=== PATIENT | female | born 1950 | race Two or more races ===

== ENCOUNTER → 2019-05-30 | Day surgery (SDC) | payer OTHER ==
--- NOTE | 2019-05-31 13:16 | PATH ---
Cytology Non-Gynecological Report Patient Name: CELIA BURNETTE [facility]. Rec. #: [id number] /Age/Gender: 1950 (Age: 69) / F Account: [id number] Location: RADIOLOGY INTER Taken: 05/30/2019 Received: 05/30/2019 Reported: 05/31/2019 Physicians: Eleonora Farrar M.D. Specimen(s) Received THYROID, RIGHT LOBE, FINE NEEDLE ASPIRATION Clinical History Right lobe, 2.33 x 1.48 x 1.53 cm Final Diagnosis THYROID, RIGHT LOBE, FINE NEEDLE ASPIRATION: SATISFACTORY FOR EVALUATION. B[place] CLASS II: BENIGN. CYTOLOGIC FINDINGS ARE CONSISTENT WITH A BENIGN FOLLICULAR NODULE. SMALL FOLLICULAR CELLS, COLLOID, AND FEW MACROPHAGES PRESENT. Electronically Signed Amber Garcia M.D. Gross Description Received are eight direct smears, four of which are air-dried and Diff-Quik stained, and four of which are alcohol fixed and Pap stained. Also received is 20 ml of bloody formalin from which one cellblock is prepared. Received is a 1.5 ml molecular ThyroSeq tube.
== END | disposition home or self-care (01) ==
LOC: JRADIR 09:15
PROVIDERS: ATTEND Internal Medicine Endocrinology, Diabetes & Metabolism
PROC: 0G9K3ZX Drainage of Thyroid Gland, Percutaneous Approach, Diagnostic (ICD-10-PCS; principal; 2019-05-30)
DX: E04.1 Nontoxic single thyroid nodule (principal)
CPT/HCPCS: 76942; 88173; 88305-TC

== ENCOUNTER → 2021-01-20 | Day surgery (SDC) | payer OTHER | END | disposition home or self-care (01) | LOC: JRADIR 09:25 | PROVIDERS: ATTEND Internal Medicine Endocrinology, Diabetes & Metabolism | PROC: 0G9G3ZX Drainage of Left Thyroid Gland Lobe, Percutaneous Approach, Diagnostic (ICD-10-PCS; principal; 2021-01-20) | DX: E04.1 Nontoxic single thyroid nodule (principal) | CPT/HCPCS: 10005; 76942; 88173; 88305-TC ==